=== PATIENT | male | born 1990 | race Caucasian/White ===

== ENCOUNTER 2019-07-21 10:39 | Inpatient (IN) | payer OTHER ==
[~2019-07-21] VITALS: Ht 175.3 cm; Wt 67.4 kg
--- NOTE | 2019-07-21 11:11 | NUR ---
PT TO XR
--- NOTE | 2019-07-21 11:23 | NUR ---
PT RETURNED FROM XR
[2019-07-21] MEDS ORDERED: DILTIAZEM 125 MG in SODIUM CHLORIDE 0.9% 100 ML IV SCH (11:43)
[2019-07-21] MEDS ORDERED: SODIUM CHLORIDE FLUSH 10ML SYR IVF ONE (12:00)
[2019-07-21] MEDS ORDERED: LORazepam 2 MG/ML, 1ML IV ONE (12:00)
--- NOTE | 2019-07-21 12:01 | NUR ---
PT UPRIGHT ON GURNEY AWAKE & MILDLY ANXIOUS, REASSURANCE HELPFUL, RESPONDS APPROP TO STAFF, NAD, COMFORT MEASURES PROVIDED, CALL LIGHT WITHIN REACH.
[2019-07-21] MEDS ORDERED: LORazepam 2 MG/ML, 1ML ONE (12:03)
[2019-07-21 12:05] LABS: BASOPHILS # (AUTO) 0.03 x10^3/uL (0-0.1); BASOPHILS % (AUTO) 0 % (0-1); EOSINOPHILS # (AUTO) 0.56 x10^3/uL (0-0.4); EOSINOPHILS % (AUTO) 5 % (1-7); LYMPHOCYTES # (AUTO) 1.72 x10^3/uL (1-3.4); LYMPHOCYTES % (AUTO) 17 % (22-44); MD NO; MEAN CORPUSCULAR HEMOGLOBIN 31.8 pg (27.5-34.5); MEAN CORPUSCULAR HGB CONC 33.5 g/dL (33.2-36.2); MEAN CORPUSCULAR VOLUME 94.8 fL (81-97); MEAN PLATELET VOLUME 9.6 fL (7.4-10.4); MONOCYTES % (AUTO) 11 % (2-9); NEUTROPHILS # (AUTO) 7.05 x10^3/uL (1.8-6.8); NEUTROPHILS % (AUTO) 67 % (42-75); PLATELET COUNT 280 x10^3/uL (130-400); RED BLOOD COUNT 5.42 x10^6/uL (4.38-5.82); RED CELL DISTRIBUTION WIDTH 11.9 % (9.4-14.8)
[2019-07-21 12:12] LABS: ANION GAP 8 mmol/L (5-15); CALCIUM 8.9 mg/dL (8.5-10.1); CHLORIDE 102 mmol/L (98-107)
--- NOTE | 2019-07-21 12:16 | NUR ---
Steffany garduno in ED - 07/21/19 at 1217 by KEAGAN PT UPRIGHT ON GRUPOCHEMO AWAKE & COMFORTABLE, C/O NAUSEA BUT NO VOMITING AT THIS TIME, RESPONDS APPROP TO STAFF, COMFORT MEASURES PROVIDED, CALL LIGHT WITHIN REACH.
[2019-07-21] MEDS ORDERED: LIDOCAINE 1%, 10ML ONE (13:28)
--- NOTE | 2019-07-21 14:05 | NUR ---
PT RETURNED FROM IR WITH LT CHEST TUBE IN PLACE, UPRIGHT ON GURNEY AWAKE & CALM, RESPONDS APPROP TO STAFF, COMFORT MEASURES PROVIDED, CALL LIGHT WITHIN REACH.
--- NOTE | 2019-07-21 14:23 | NUR ---
Pt to be admitted to med-surg, room 461. Report called to Maxime.
[2019-07-21] MEDS ORDERED: ONDANSETRON 2MG/ML, 2ML IVPush PRN (15:00)
[2019-07-21] MEDS ORDERED: ACETAMINOPHEN 325 MG TABLET PO PRN (15:00)
[2019-07-21] MEDS ORDERED: ONDANSETRON ODT 4 MG PO PRN (15:00)
[2019-07-21] MEDS ORDERED: IBUPROFEN 600 MG TABLET PO PRN (15:00)
[2019-07-21 15:18] VITALS: BP 146/104
[2019-07-21] MEDS: NICOTINE 14MG/24 HR PATCH.TD24 TD SCH (15:58)
[2019-07-21 18:57] VITALS: BP 119/81
[2019-07-22 01:35] VITALS: BP 124/83
[2019-07-22 06:07] LABS: BASOPHILS # (AUTO) 0.02 x10^3/uL (0-0.1); BASOPHILS % (AUTO) 0 % (0-1); EOSINOPHILS # (AUTO) 0.88 x10^3/uL (0-0.4); EOSINOPHILS % (AUTO) 8 % (1-7); LYMPHOCYTES # (AUTO) 1.64 x10^3/uL (1-3.4); LYMPHOCYTES % (AUTO) 15 % (22-44); MD NO; MEAN CORPUSCULAR HEMOGLOBIN 31.6 pg (27.5-34.5); MEAN CORPUSCULAR VOLUME 95.9 fL (81-97); MEAN PLATELET VOLUME 9.5 fL (7.4-10.4); MONOCYTES # (AUTO) 0.88 x10^3/uL (0.2-0.8); MONOCYTES % (AUTO) 8 % (2-9); NEUTROPHILS # (AUTO) 7.46 x10^3/uL (1.8-6.8); NEUTROPHILS % (AUTO) 69 % (42-75); PLATELET COUNT 245 x10^3/uL (130-400); RED BLOOD COUNT 5.25 x10^6/uL (4.38-5.82); RED CELL DISTRIBUTION WIDTH 12.2 % (9.4-14.8)
[2019-07-22 06:22] LABS: CHLORIDE 108 mmol/L (98-107)
[2019-07-22 06:34] LABS: ANION GAP 9 mmol/L (5-15); CALCIUM 8.9 mg/dL (8.5-10.1); CREATININE 0.72 mg/dL (0.7-1.3)
[2019-07-22 07:35] VITALS: BP 134/73
[2019-07-22] MEDS: POTASSIUM CHLORIDE 20 MEQ TAB.ER.PRT PO SCH ×2 (09:36→16:48)
[2019-07-22 13:41] VITALS: BP 121/85
[2019-07-22] MEDS: NICOTINE 14MG/24 HR PATCH.TD24 TD SCH (15:16)
[2019-07-22 19:07] VITALS: BP 128/88
[2019-07-23 02:00] VITALS: BP 116/80
[2019-07-23 05:25] LABS: BASOPHILS # (AUTO) 0.07 x10^3/uL (0-0.1); BASOPHILS % (AUTO) 1 % (0-1); EOSINOPHILS # (AUTO) 1.08 x10^3/uL (0-0.4); EOSINOPHILS % (AUTO) 11 % (1-7); LYMPHOCYTES # (AUTO) 2.53 x10^3/uL (1-3.4); LYMPHOCYTES % (AUTO) 26 % (22-44); MD NO; MEAN CORPUSCULAR HEMOGLOBIN 31.8 pg (27.5-34.5); MEAN CORPUSCULAR HGB CONC 33.1 g/dL (33.2-36.2); MEAN CORPUSCULAR VOLUME 96.3 fL (81-97); MONOCYTES # (AUTO) 0.97 x10^3/uL (0.2-0.8); MONOCYTES % (AUTO) 10 % (2-9); NEUTROPHILS # (AUTO) 4.98 x10^3/uL (1.8-6.8); NEUTROPHILS % (AUTO) 52 % (42-75); PLATELET COUNT 240 x10^3/uL (130-400); RED BLOOD COUNT 5.07 x10^6/uL (4.38-5.82); RED CELL DISTRIBUTION WIDTH 12.2 % (9.4-14.8)
[2019-07-23 05:39] LABS: ANION GAP 9 mmol/L (5-15); CALCIUM 8.4 mg/dL (8.5-10.1); CHLORIDE 106 mmol/L (98-107)
[2019-07-23 05:40] LABS: CREATININE 0.95 mg/dL (0.7-1.3)
[2019-07-23 07:55] VITALS: BP 112/72
[2019-07-23] MEDS: POTASSIUM CHLORIDE 20 MEQ TAB.ER.PRT PO SCH ×2 (08:47→16:39)
[2019-07-23 14:05] VITALS: BP 119/81
[2019-07-23] MEDS: NICOTINE 14MG/24 HR PATCH.TD24 TD SCH (15:01)
[2019-07-23 20:12] VITALS: BP 131/81
[2019-07-24 02:32] VITALS: BP 110/53
[2019-07-24 07:09] VITALS: BP 123/87
[2019-07-24] MEDS: POTASSIUM CHLORIDE 20 MEQ TAB.ER.PRT PO SCH (08:11)
[2019-07-24 12:14] VITALS: BP 128/58
[2019-07-24] MEDS: NICOTINE 14MG/24 HR PATCH.TD24 TD SCH (15:00)
== END 2019-07-24 16:19 | disposition home or self-care (01) | DRG 200 ==
LOC: ED 11:50 → EDIP 12:26 → 4NE 15:10 → DCLOUNGE 07-24 16:17
PROVIDERS: ADMIT Hospitalist; ATTEND Family Medicine
PROC: 0W9B30Z Drainage of Left Pleural Cavity with Drainage Device, Percutaneous Approach (ICD-10-PCS; principal; 2019-07-21)
DX: J93.11 Primary spontaneous pneumothorax (principal); E87.1 Hypo-osmolality and hyponatremia; R65.10 Systemic inflammatory response syndrome (SIRS) of non-infectious origin without acute organ dysfunction; E87.6 Hypokalemia; F10.10 Alcohol abuse, uncomplicated; F12.90 Cannabis use, unspecified, uncomplicated; F14.10 Cocaine abuse, uncomplicated; F17.210 Nicotine dependence, cigarettes, uncomplicated; F41.1 Generalized anxiety disorder; J45.909 Unspecified asthma, uncomplicated; Z87.09 Personal history of other diseases of the respiratory system; Y90.9 Presence of alcohol in blood, level not specified
CPT/HCPCS: 32557; 36415; 99285; J3490; 32551; 71045; 71046; 80048; 82040; 85025; 93005; G0378; C1729; C1769; J2060

== ENCOUNTER 2020-12-27 09:42 | Emergency (ER) | payer MEDICAID ==
[~2020-12-27] VITALS: Ht 175.3 cm; Wt 58.2 kg
--- NOTE | 2020-12-27 11:58 | NUR ---
meringuer: pt from lobby to room 21
[2020-12-27 12:38] VITALS: BP 131/84
== END 2020-12-27 12:48 | disposition home or self-care (01) ==
LOC: ED 12:20
DX: S90.112A Contusion of left great toe without damage to nail, initial encounter (principal); F17.200 Nicotine dependence, unspecified, uncomplicated; X58.XXXA Exposure to other specified factors, initial encounter; Y93.89 Activity, other specified; Y92.009 Unspecified place in unspecified non-institutional (private) residence as the place of occurrence of the external cause; Y99.8 Other external cause status
CPT/HCPCS: 99283